=== PATIENT | female | born 1985 | race Caucasian/White ===

== ENCOUNTER → 2018-01-18 14:49 | Outpatient (CLI) | payer OTHER, SELFPAY ==
[2018-01-19 16:10] LABS: Strep Grp B PCR POS for Grp B Strep
== END ==
PROVIDERS: Family Provider Nurse Practitioner; PCP Nurse Practitioner; Visit Provider Obstetrics & Gynecology
DX: Z36.9 Encounter for antenatal screening, unspecified (principal); Z3A.36 36 weeks gestation of pregnancy
CPT/HCPCS: 87653

== ENCOUNTER 2018-02-04 06:18 | Outpatient (CLI) | payer OTHER, SELFPAY ==
--- NOTE | 2018-02-04 07:17 | PM.OBTRLD ---
Visit Information Visit Information Date of evaluation: 02/04/18 Primary OB Provider: Indy Bryan On-call OB Provider: Evita Jalloh Reason for Evaluation: Yes rule out labor Vital Signs Vital Signs: Blood pressure 130/85, pulse 114, temperature 35.9? PFSH Medical History Bipolar disorder (Chronic) Depression (Chronic) Hypothyroidism (Chronic) Surgical History History of third molar tooth extraction (Resolved) Review of Systems Review of Systems Patient denies leakage of fluid. She has been having regular contractions that are increasing. Good movement. No signs or symptoms of preeclampsia. All systems reviewed & are unremarkable except as noted in HPI and below Exam Narrative Exam Narrative: Per nurse's exam patient's cervix is 1 and 0.5 cm dilated 50% effaced posterior -2 to 3. Evaluation Evaluation Baseline heart rate: 125 Variability: Moderate (11-25) monitor accelerations: Present monitor decelerations: Absent Contraction Frequency (minutes): 4 Uterine Contraction Intensity: Moderate Category of Tracing: I Cervical dilation (cm): 1 Cervical effacement (%): 50 station: -2 Diagnosis, Plan/Disposition Final Diagnosis (1) 39 weeks gestation of : Current Visit: No Status: Acute (2) Encounter for supervision of other normal , third trimester: Current Visit: Yes Status: Acute Plan/Disposition Plan: Patient in prodrome labor she will go home and return if she continues to have increasing contractions or rupture of membranes.
== END 2018-02-04 07:25 | disposition home or self-care (01) ==
LOC: OB 13:09
PROVIDERS: Family Provider Nurse Practitioner; PCP Nurse Practitioner; Visit Provider Specialist
DX: Z34.83 Encounter for supervision of other normal pregnancy, third trimester (principal); R10.2 Pelvic and perineal pain; Z3A.38 38 weeks gestation of pregnancy
CPT/HCPCS: 59025; G0378; G0379

== ENCOUNTER 2018-02-04 21:12 | Inpatient (IN) | payer OTHER, SELFPAY ==
[2018-02-04 22:58] LABS: Add Manual Diff / Slide Review NO; Basophils Percent Auto 0.2 % (0-2); Eosinophils Percent Auto 0.9 % (2-4); Hematocrit 31.9 % (36-46); Hemoglobin 10.5 g/dL (12.0-16.0); Mean Corpuscular HGB Conc 32.8 % (30-36); Mean Corpuscular Hemoglobin 26.8 PG (26-34); Mean Corpuscular Volume 81.9 fL (80-100); Monocytes Percent Auto 7.3 % (3-14); Neutrophils Absolute Auto 11000 /uL (3000-5900); Neutrophils Percent Auto 78.6 % (50-75); Platelet Count 193 X10^3/uL (150-400); White Blood Cell Count 13.9 X10^3/uL (4.5-11.0)
[2018-02-04] MEDS: LACTATED RINGERS 1,000 ML 1000 ML IV (22:59)
--- NOTE | 2018-02-05 03:27 | PM.OBPRVD ---
Delivery date: 02/05/18 Induction method: none Delivery monitor: external FHT Route of delivery: Laceration description: Perineal - 1st Degree Estimated blood loss (mL): 250 Anesthesia type: Epidural Complications: None Narrative: Patient was admitted in active labor at 4-5 cm dilated. An epidural was placed. Patient made rapid progress to complete and delivered spontaneously a live born female with scores eight at 1 min and nine at 5 min good condition. Placenta delivered spontaneously in the cord at three vessels. The estimated blood loss was 250 cc. There was a small first-degree tear which required one stitch of two 0 chromic suture.
[2018-02-05 07:40] VITALS: BP 124/71
--- NOTE | 2018-02-05 08:09 | PM.OBPN.1 ---
Subjective - OB Interval history: exam Patient comments: no complaints [place] baby status: doing well [place] feeding status: exclusively breast feeding Narrative: Patient is a 32-year-old two now para two status post spontaneous vaginal delivery without difficulties. Patient is taking p.o. well. She is ambulating well. Patient has urinated. Her IV has been discontinued. And her lochia is scant. Date Patient Seen: 02/05/18 Time Patient Seen: 08:10 Exam Vital Signs (past 8 hours): - 02/05/18 07:40 Blood Pressure 124/71 H Narrative Exam Narrative: Fundus U minus two Perineum is without ecchymosis or swelling Lochia scant Objective Labs Result Diagrams: 02/04/18 22:10 Labs: Laboratory Results - last 24 hr 02/04/18 02/04/18 22:10 22:10 WBC 13.9 H RBC 3.90 L Hgb 10.5 L Hct 31.9 L MCV 81.9 MCH 26.8 MCHC 32.8 RDW 14.0 Plt Count 193 Neut % (Auto) 78.6 H Lymph % (Auto) 13.0 L [place] % (Auto) 7.3 Eos % (Auto) 0.9 L Baso % (Auto) 0.2 Neut # (Auto) 47276 H Blood Type B Negative Antibody Screen Negative Antibody Identification Cancelled Assessment & Plan Plan day: 1 plan OB: routine care Comments: Patient is and doing well Time Spent With Patient Total time spent is greater than 50% in coordination of care (as documented) at patient's floor/unit and/or counseling patient: less than 15 minutes
--- NOTE | 2018-02-05 08:13 | P.PNOB_ITS ---
Subjective - OB Interval history: exam Patient comments: no complaints [place] baby status: doing well [place] feeding status: exclusively breast feeding Narrative: Patient is a 32-year-old two now para two status post spontaneous vaginal delivery without difficulties. Patient is taking p.o. well. She is ambulating well. Patient has urinated. Her IV has been discontinued. And her lochia is scant. Date Patient Seen: 02/05/18 Time Patient Seen: 08:10 Exam Vital Signs (past 8 hours): - 02/05/18 07:40 Blood Pressure 124/71 H Narrative Exam Narrative: Fundus U minus two Perineum is without ecchymosis or swelling Lochia scant Objective Labs Result Diagrams: 02/04/18 22:10 Labs: Laboratory Results - last 24 hr 02/04/18 02/04/18 22:10 22:10 WBC 13.9 H RBC 3.90 L Hgb 10.5 L Hct 31.9 L MCV 81.9 MCH 26.8 MCHC 32.8 RDW 14.0 Plt Count 193 Neut % (Auto) 78.6 H Lymph % (Auto) 13.0 L [place] % (Auto) 7.3 Eos % (Auto) 0.9 L Baso % (Auto) 0.2 Neut # (Auto) 36594 H Blood Type B Negative Antibody Screen Negative Antibody Identification Cancelled Assessment & Plan Plan day: 1 plan OB: routine care Comments: Patient is and doing well Time Spent With Patient Total time spent is greater than 50% in coordination of care (as documented) at patient's floor/unit and/or counseling patient: less than 15 minutes
[2018-02-05] MEDS: DOCUSATE 250 MG CAPSULE PO (08:20)
[2018-02-05] MEDS: DERMOPLAST SPRAY 20% 60 ML 1 SPRAY TOP (08:20)
[2018-02-05 08:45] LABS: Hematocrit 30.1 % (36-46); Hemoglobin 9.9 g/dL (12.0-16.0)
[2018-02-05] MEDS: IBUPROFEN 600 MG TABLET PO ×2 (10:07→17:44)
[2018-02-05] MEDS: LANOLIN OINT 7 GM 1 APPLIC TOP (17:12)
[2018-02-06] MEDS: IBUPROFEN 600 MG TABLET PO ×2 (00:05→08:13)
[2018-02-06 05:58] LABS: Hematocrit 31.9 % (36-46); Hemoglobin 10.4 g/dL (12.0-16.0)
[2018-02-06] MEDS: RHO(D) IMMUNE GLOBULIN 1,500 UNIT SYRINGE 1500 UNIT IM (08:12)
[2018-02-06] MEDS: DOCUSATE 250 MG CAPSULE PO (08:12)
[2018-02-06 09:09] VITALS: BP 138/85; PULSE 90; RESP 15; TEMP 36.7
--- NOTE | 2018-02-06 09:53 | PM.OBDS.1 ---
Discharge Providers Date of admission: 02/04/18 21:12 Primary care physician: CAMILA Acosta Consults: 02/05/18 08:04 Consult to Change Attendant Routine Comment: Discharge provider: Galindo Spring MD Summary Date Patient Seen: 02/06/18 Time Patient Seen: 09:54 Hospital Course: The patient is a 32-year-old white female two now para two who presented in active labor at term. Patient had a rapid labor. Epidural anesthesia was performed. She delivered spontaneously a live born female infant with scores eight at 1 min nine at 5 min in good condition. The estimated blood loss was 250 cc. Patient sustained a small first-degree tear repaired with 120 chromic suture. the patient did well. She remained afebrile with stable vital signs and was progressively element and ambulated. She was discharged home for follow-up in six weeks. instructions were given regards to wound care bathing and exercise. Peripartum Data Infant Delivery Method: Natural Vaginal Laceration description: Perineal - 1st Degree complications: none Status at Discharge Cognitive/behavioral status at discharge: Normal Functional status at discharge: independent ambulation Time Spent with Patient Total time spent providing and/or coordinating discharge services: Less than 30 minutes Specific discharge activities: No heavy lifting Nothing in the vagina Time spent discussing smoking cessation with patient: 3 to 10 minutes (Nothing in the vagina) Objective Labs Result Diagrams: 02/06/18 05:42 Labs: Laboratory Results - last 24 hr 02/06/18 05:42 Hgb 10.4 L Hct 31.9 L Discharge Plan Discharge Plan Patient Disposition: Home, Self-Care Discharge Med Rec/Prescriptions Prescriptions: New benzocaine-menthol [Dermoplast (with menthol)] 20-0.5 % aerosol 1 spray TOP TID Qty: 78 RF: 0 oxycodone-acetaminophen [Percocet] 5-325 mg tablet 2 tab PO Q4-6H PRN (Reason: pain) Qty: 20 RF: 0 docusate sodium [Colace] 100 mg capsule 200 mg PO BEDTIME Qty: 14 RF: 0 ibuprofen 600 mg tablet 600 mg PO QID PRN (Reason: pain) Qty: 20 RF: 0 lanolin 100 % ointment 100 % TOP TID Qty: 397 RF: 0 Continue sertraline [Zoloft] 50 MG tablet 75 mg PO Q DAY Qty: 0 RF: 0 Vitamins (PRENAVITE) 1 tab PO DAILY Qty: 0 RF: 0 Follow up/Referrals: Indy Bryan MD [Physician] - (Follow up with Dr. Bryan at [facility] on March 12 @ 3:15PM. ) Provider Discharge Instructions Diet: Diet as Tolerated and Regular Wound Care Other wound treatment: Keep wound clean and dry Visit Report/Discharge Packet Visit Report Forms: Stroke Signs & Symptoms Discharge Data Primary Care Provider: Hayley Sharpe Attending Provider: Galindo Spring Admit Date/Time: 02/04/18 21:12 Discharge Interventions Interventions: Discharge assessment Last Done: 02/06/18 09:09
--- NOTE | 2018-02-06 09:57 | P.DS_ITS ---
Discharge Providers Date of admission: 02/04/18 21:12 Primary care physician: ACMILA Acosta Consults: 02/05/18 08:04 Consult to Clinic Clerk Routine Comment: Discharge provider: Galindo Spring MD Summary Date Patient Seen: 02/06/18 Time Patient Seen: 09:54 Hospital Course: The patient is a 32-year-old white female two now para two who presented in active labor at term. Patient had a rapid labor. Epidural anesthesia was performed. She delivered spontaneously a live born female infant with scores eight at 1 min nine at 5 min in good condition. The estimated blood loss was 250 cc. Patient sustained a small first-degree tear repaired with 120 chromic suture. the patient did well. She remained afebrile with stable vital signs and was progressively element and ambulated. She was discharged home for follow -up in six weeks. instructions were given regards to wound care bathing and exercise. Peripartum Data Infant Delivery Method: Natural Vaginal Laceration description: Perineal - 1st Degree complications: none Status at Discharge Cognitive/behavioral status at discharge: Normal Functional status at discharge: independent ambulation Time Spent with Patient Total time spent providing and/or coordinating discharge services: Less than 30 minutes Specific discharge activities: No heavy lifting Nothing in the vagina Time spent discussing smoking cessation with patient: 3 to 10 minutes (Nothing in the vagina) Objective Labs Result Diagrams: 02/06/18 05:42 Labs: Laboratory Results - last 24 hr 02/06/18 05:42 Hgb 10.4 L Hct 31.9 L Discharge Plan Discharge Plan Patient Disposition: Home, Self-Care Discharge Med Rec/Prescriptions Prescriptions: New benzocaine-menthol [Dermoplast (with menthol)] 20-0.5 % aerosol 1 spray TOP TID Qty: 78 RF: 0 oxycodone-acetaminophen [Percocet] 5-325 mg tablet 2 tab PO Q4-6H PRN (Reason: pain) Qty: 20 RF: 0 docusate sodium [Colace] 100 mg capsule 200 mg PO BEDTIME Qty: 14 RF: 0 ibuprofen 600 mg tablet 600 mg PO QID PRN (Reason: pain) Qty: 20 RF: 0 lanolin 100 % ointment 100 % TOP TID Qty: 397 RF: 0 Continue sertraline [Zoloft] 50 MG tablet 75 mg PO Q DAY Qty: 0 RF: 0 Vitamins (PRENAVITE) 1 tab PO DAILY Qty: 0 RF: 0 Follow up/Referrals: Indy Bryan MD [Physician] - (Follow up with Dr. Bryan at [facility] on March 12 @ 3:15PM. ) Provider Discharge Instructions Diet: Diet as Tolerated and Regular Wound Care Other wound treatment: Keep wound clean and dry Visit Report/Discharge Packet Visit Report Forms: Stroke Signs & Symptoms Discharge Data Primary Care Provider: Hayley Sharpe Attending Provider: Galindo Spring Admit Date/Time: 02/04/18 21:12 Discharge Interventions Interventions: Discharge assessment Last Done: 02/06/18 09:09
== END 2018-02-06 10:20 | disposition home or self-care (01) | DRG 775 ==
PROVIDERS: Family Provider Nurse Practitioner; PCP Nurse Practitioner
DX: O99.824 Streptococcus B carrier state complicating childbirth (principal); Z3A.38 38 weeks gestation of pregnancy; Z37.0 Single live birth; O70.0 First degree perineal laceration during delivery
CPT/HCPCS: 01967; 36415; 59050; 59400; 59409; 85014; 85018; 85025; 86850; 86870; 86900; 86901; G0379; J2790; J3010

== ENCOUNTER 2024-06-01 16:50 | Emergency (ER) | payer OTHER, SELFPAY ==
[2024-06-01] VITALS (23 sets, daily range): BP systolic 115–154; BP diastolic 56–91; PULSE 71–105; RESP 9–61; O2SAT 95–100; BMI 22.6
[2024-06-01] MEDS: EPINEPHrine 1 MG/ML 0.3 MG IM (17:15)
--- NOTE | 2024-06-01 17:16 | ED_ITS ---
HPI - Allergic Reaction General Chief complaint: Allergic Reaction Stated complaint: allergy (shrimp) Time Seen by Provider: 06/01/24 17:13 Source: patient Mode of arrival: Ambulatory History of Present Illness HPI narrative: Patient here for allergic reaction. Patient brought in by family. Just prior to arrival she accidentally ate some shrimp that she is allergic to. She was at home. It was mislabeled on the packaging. 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 She did not take her EpiPen. On arrival patient states she has throat tightening. Appears anxious. Solu-Medrol Benadryl Pepcid EpiPen ordered. Patient on monitor. Speaking full sentences. No rash or itching. No tongue swelling or lip swelling. Posterior pharynx has no edema or erythema. No stridor on auscultation neck and lungs Related Data Home Medications Medication Instructions Recorded Confirmed Vitamins (PRENAVITE) 1 tab PO DAILY ##0 05/15/16 02/05/18 sertraline 50 mg tablet (Zoloft) 75 mg PO Q DAY ##0 05/15/16 02/05/18 Previous Rx's Medication Instructions Recorded benzocaine 20 %-menthol 0.5 % 1 spray topical TID #78 grams 02/06/18 topical aerosol (Dermoplast (with menthol)) docusate sodium 100 mg capsule 200 mg (2 x 100 mg) PO BEDTIME #14 02/06/18 (Colace) caps ibuprofen 600 mg tablet 600 mg PO QID PRN pain #20 tabs 02/06/18 lanolin 100 % topical ointment 100 % topical TID #397 grams 02/06/18 oxycodone-acetaminophen 5 mg-325 2 tab PO Q4-6H PRN pain #20 tabs 02/06/18 mg tablet (Percocet) famotidine 20 mg tablet 20 mg PO BID #14 tabs 06/01/24 methylprednisolone 4 mg tablets in See Rx Instructions PO .COMPLEX 06/01/24 a dose pack (Medrol (Tomer)) #21 ea Allergies Allergy/AdvReac Type Severity Reaction Status Date / Time shellfish derived Allergy Severe anaphylaxis Verified 02/05/18 07:30 [SHELLFISH DERIVED] hydrocodone [From VICODIN] Allergy Intermediate hives Verified 02/05/18 07:30 Review of Systems Review of Systems Narrative: GENERAL: Negative chills, fatigue, malaise, fever, sweats. HEENT: Negative sinus pain, ear pain, sore throat RESPIRATORY: Positive dyspnea, negative cough CARDIOVASCULAR: Negative chest pain, palpitations GASTROINTESTINAL: Negative nausea, vomiting, abdominal pain : Negative dysuria, frequency, hematuria MUSCULOSKELETAL: Negative muscle or bony pain SKIN: Negative rash, skin lesions NEUROLOGIC: Negative weakness, numbness ROS Unobtainable: All systems reviewed & are unremarkable except as noted in HPI and below Patient History Medical History Bipolar disorder Hypothyroidism Depression Surgical History History of third molar tooth extraction Social History Smoking Status: Never smoker Smoking Status: Never smoker Substance Use Type: does not use Exam Narrative Exam Narrative: GENERAL: in no distress, not toxic not dyspneic HEAD: Normocephalic. EYES: Pupils equal round ENT: Mucous membranes moist. Posterior pharynx mouth lips no edema no tongue elevation no drooling no trismus no malocclusion NECK: Trachea midline. No stridor CARDIOVASCULAR: Regular rate and rhythm RESPIRATORY: Clear to auscultation. Breath sounds equal bilaterally. No wheezes, rales, or rhonchi. No stridor GASTROINTESTINAL: Abdomen soft, non-tender EXTREMITIES: No gross deformities. BACK: No flank tenderness. NEURO: AOx4. Clear speech SKIN: Warm and dry PSYCH: Not anxious, is cooperative Initial Vital Signs Initial Vital Signs: Vital Signs Pulse Rate 80 06/01/24 17:04 Pulse Oximetry 100 06/01/24 17:04 Course Orders Ordered: Discontinued Medications Diphenhydramine HCl (Diphenhydramine 50 Mg/Ml Vial) 50 mg IV NOW ONE Stop: 06/01/24 17:15 Last Admin: 06/01/24 17:22 Dose: 50 mg Documented By: LENNIE Epinephrine HCl (Epinephrine 1 Mg/Ml) 0.3 mg IM NOW ONE Stop: 06/01/24 17:16 Last Admin: 06/01/24 17:15 Dose: 0.3 mg Documented By: LENNIE Famotidine (Famotidine 20 Mg/2 Ml Vial) 20 mg IV NOW JACK Famotidine (Famotidine 20 Mg/2 Ml Vial) 20 mg IV NOW JACK Famotidine (Famotidine 20 Mg/2 Ml Vial) 20 mg IV NOW ONE Stop: 06/01/24 17:43 Last Admin: 06/01/24 17:23 Dose: 20 mg Documented By: LENNIE Methylprednisolone (Methylprednisolone 125 Mg/2 Ml Vial) 125 mg IV NOW ONE Stop: 06/01/24 17:15 Last Admin: 06/01/24 17:21 Dose: 125 mg Documented By: LENNIE MDM - Allergic Reaction [facility] Narrative Medical decision making narrative: Patient here for allergic reaction. Patient brought in by family. Just prior to arrival she accidentally ate some shrimp that she is allergic to. She was at home. It was mislabeled on the packaging. 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 She did not take her EpiPen. On arrival patient states she has throat tightening. Appears anxious. Solu-Medrol Benadryl Pepcid EpiPen ordered. Patient on monitor. Speaking full sentences. No rash or itching. No tongue swelling or lip swelling. Posterior pharynx has no edema or erythema. No stridor on auscultation neck and lungs After history and exam no labs indicated. Patient needs Solu-Medrol Benadryl Pepcid EpiPen [facility] Medical records reviewed: No recent visit for this complaint Differential considered: Includes but not limited to anaphylaxis food allergy Lab Test results independently reviewed as above. Pertinent findings: None indicated Independently reviewed EKG none indicated Imaging studies independently reviewed: None indicated Consultations: None indicated at this time Treatments: EpiPen Benadryl Pepcid Solu-Medrol Re-evaluations: 5:34 p.m.. No respiratory distress. No airway compromise. Patient is speaking full sentences. 98% room air. Not tachypneic. 6:30 p.m.. Patient doing very well. At baseline now. No allergic complaints. Not requiring supplemental oxygen. Airway intact. Patient and desire discharge home. Will observe until 7:00 p.m. Discussion: Appropriate for discharge home return precautions reviewed patient. Not toxic at discharge. Airway intact. Patient awake alert with no respiratory distress. Patient observed for 2 hours Diagnosis: Allergic reaction Discharge Plan Departure Patient Disposition: Home Clinical Impression: Allergic reaction Qualifiers: Encounter type: initial encounter Qualified Code(s): T78.40XA - Allergy, unspecified, initial encounter Instructions: DI for Anaphylaxis, DI for Food Allergy Activity Restrictions/Additional Instructions: Please carry your EpiPen with you at all times. Prescriptions have been provided for you and sent to your pharmacy. Please continue steroid pack tomorrow. See family doctor this week for re-evaluation. Return if worse if any questions or concerns. Prescriptions: New famotidine 20 mg tablet 20 mg PO BID Qty: 14 0RF methylprednisolone [Medrol (Tomer)] 4 mg tablets,dose pack See Rx Instructions .ROUTE .COMPLEX Qty: 21 0RF Rx Instructions: orally per package directions No Action sertraline [Zoloft] 50 MG tablet 75 mg PO Q DAY Qty: 0 Vitamins (PRENAVITE) 1 tab PO DAILY Qty: 0 benzocaine-menthol [Dermoplast (with menthol)] 20-0.5 % aerosol 1 spray TOP TID Qty: 78 0RF oxycodone-acetaminophen [Percocet] 5-325 mg tablet 2 tab PO Q4-6H PRN (Reason: pain) Qty: 20 0RF docusate sodium [Colace] 100 mg capsule 200 mg PO BEDTIME Qty: 14 0RF ibuprofen 600 mg tablet 600 mg PO QID PRN (Reason: pain) Qty: 20 0RF lanolin 100 % ointment 100 % TOP TID Qty: 397 0RF Referrals: Hayley Sharpe ARNP [Primary Care Provider] - Stand Alone Forms: Patient Portal/API/Survey
[2024-06-01] MEDS: methylPREDNISolone 125 MG/2 ML VIAL IV (17:21)
[2024-06-01] MEDS: diphenhydrAMINE 50 MG/ML VIAL IV (17:22)
[2024-06-01] MEDS: FAMOTIDINE 20 MG/2 ML VIAL IV (17:23)
== END 2024-06-01 19:06 | disposition home or self-care (01) ==
PROVIDERS: Emergency Provider Emergency Medicine; Family Provider Nurse Practitioner; PCP Nurse Practitioner
DX: T78.02XA Anaphylactic reaction due to shellfish (crustaceans), initial encounter (principal)
CPT/HCPCS: 36415; 96372; 96374; 96375; 99284; J0171; J1200; J2919

== ENCOUNTER 2024-11-14 19:38 | Emergency (ER) | payer OTHER, SELFPAY ==
[2024-11-14] VITALS (7 sets, daily range): BP systolic 112–143; BP diastolic 57–83; PULSE 80–98; RESP 14–22; TEMP 36.8–36.9; O2SAT 95–100
--- NOTE | 2024-11-14 19:52 | ED.GENADULT ---
HPI - General Adult General Chief complaint: Allergic Reaction Stated complaint: allergic reaction Time Seen by Provider: 11/14/24 19:50 History of Present Illness HPI narrative: 39-year-old female with history of allergic reactions to shellfish, at home ate scallops 40 minutes prior to arrival, felt throat tightening sensation, felt more short of breath, no tongue or lip swelling, no hives or itching, she took her own injection dose of epinephrine and oral dose of Benadryl 50 mg, still feeling some shortness of breath. Related Data Home Medications Medication Instructions Recorded Confirmed Vitamins (PRENAVITE) 1 tab PO DAILY ##0 05/15/16 02/05/18 sertraline 50 mg tablet (Zoloft) 75 mg PO Q DAY ##0 05/15/16 02/05/18 Previous Rx's Medication Instructions Recorded benzocaine 20 %-menthol 0.5 % 1 spray topical TID #78 grams 02/06/18 topical aerosol (Dermoplast (with menthol)) docusate sodium 100 mg capsule 200 mg (2 x 100 mg) PO BEDTIME #14 02/06/18 (Colace) caps ibuprofen 600 mg tablet 600 mg PO QID PRN pain #20 tabs 02/06/18 lanolin 100 % topical ointment 100 % topical TID #397 grams 02/06/18 oxycodone-acetaminophen 5 mg-325 2 tab PO Q4-6H PRN pain #20 tabs 02/06/18 mg tablet (Percocet) famotidine 20 mg tablet 20 mg PO BID #14 tabs 06/01/24 methylprednisolone 4 mg tablets in See Rx Instructions PO .COMPLEX 06/01/24 a dose pack (Medrol (Tomer)) #21 ea epinephrine 0.3 mg/0.3 mL 0.3 mg (0.3 mL) IM Q5-15M PRN 11/14/24 injection, auto-injector anaphylaxis #2 ea prednisone 20 mg tablet 40 mg (2 x 20 mg) PO DAILY 5 days 11/14/24 #10 tabs Allergies Allergy/AdvReac Type Severity Reaction Status Date / Time shellfish derived Allergy Severe anaphylaxis Verified 02/05/18 07:30 [SHELLFISH DERIVED] hydrocodone [From VICODIN] Allergy Intermediate hives Verified 02/05/18 07:30 Patient History Medical History Bipolar disorder Hypothyroidism Depression Surgical History History of third molar tooth extraction Social History Smoking Status: Never smoker Exam Narrative Exam Narrative: GENERAL: Well-developed patient, in mild respiratory distress. Speaking in full sentences. HEAD: Atraumatic. Normocephalic. EYES: Pupils equal round and reactive. Extraocular motions intact. No scleral icterus. No injection or drainage. No edema to lips or tongue. No facial or neck urticaria. ENT: Nose without bleeding, purulent drainage. Throat without erythema, tonsillar hypertrophy or exudate. Airway patent. NECK: Trachea midline. Non tender CARDIOVASCULAR: Regular rate and rhythm without murmurs, gallops, or rubs. RESPIRATORY: Clear to auscultation. Breath sounds equal bilaterally. No wheezes, rales, or rhonchi. GASTROINTESTINAL: Abdomen soft, non-tender, nondistended. EXTREMITIES: No edema or joint tenderness. BACK: Nontender without deformity or crepitance. No flank tenderness. NEURO: AOx3. Motor functions grossly nonfocal SKIN: No rash or erythema of visible areas Initial Vital Signs Initial Vital Signs: Vital Signs Pulse Rate 98 H 11/14/24 19:50 Blood Pressure 143/83 H 11/14/24 19:50 Pulse Oximetry 95 11/14/24 19:50 Course Orders Ordered: Discontinued Medications Albuterol (Albuterol 2.5 Mg/3 Ml Neb (Adult)) 2.5 mg INH NOW ONE Stop: 11/14/24 19:56 Last Admin: 11/14/24 20:18 Dose: 2.5 mg Documented By: ESTEFANÍA Diphenhydramine HCl (Diphenhydramine 50 Mg/Ml Vial) 25 mg IV NOW ONE Stop: 11/14/24 19:51 Last Admin: 11/14/24 20:11 Dose: 25 mg Documented By: SAVANNAH Famotidine (Famotidine 20 Mg/2 Ml Vial) 20 mg IV NOW JACK Last Admin: 11/14/24 20:11 Dose: 20 mg Documented By: SAVANNAH Methylprednisolone (Methylprednisolone 125 Mg/2 Ml Vial) 125 mg IV NOW ONE Stop: 11/14/24 19:51 Last Admin: 11/14/24 20:05 Dose: 125 mg Documented By: SAVANNAH Medical Decision Making MDM Narrative Medical decision making narrative: History shellfish allergies, ate scallops, dyspnea, took own EpiPen and oral Benadryl dose, still short of breath. IV solumedrol, benadryl. Symptoms better. Refills of her EpiPen, sent Rx for Prednisone pulse next 5 days. Wanted to go home. Home with family. Lives nearby, return precautions discussed. Advised to avoid all forms of shellfish, not just clams and oysters. Discharge Plan Departure Patient Disposition: Home Clinical Impression: Allergic reaction due to mollusk Instructions: DI for Anaphylaxis Activity Restrictions/Additional Instructions: History of shellfish allergies, apparently not suspected to be allergic to scallops, had scallops earlier this evening with typical allergic reactions, use your own EpiPen injector and took oral Benadryl. Additional IV Benadryl was given here, along with IV steroids Solu-Medrol. Symptoms improved. We discussed further observation period of time you felt that you could go home, live nearby. We will send refill of EpiPen injectors although you have a supply at this time. Take Benadryl regularly for the next few days. Prescription sent for prednisone steroid to take for the next few days as well. Avoid all shellfish and apparently now also try to avoid scallops. Consider recheck with your regular doctor if not improved in the next couple of days. Return to this/nearest emergency department if any change worsening symptoms or any concerns prior Prescriptions: New prednisone 20 mg tablet 40 mg PO DAILY 5 Days Qty: 10 0RF epinephrine 0.3 mg/0.3 mL auto-injector 0.3 mg IM Q5-15M PRN (Reason: anaphylaxis) Qty: 2 1RF Rx Instructions: do not exceed 3 doses per episode No Action sertraline [Zoloft] 50 MG tablet 75 mg PO Q DAY Qty: 0 Vitamins (PRENAVITE) 1 tab PO DAILY Qty: 0 famotidine 20 mg tablet 20 mg PO BID Qty: 14 0RF methylprednisolone [Medrol (Tomer)] 4 mg tablets,dose pack See Rx Instructions .ROUTE .COMPLEX Qty: 21 0RF Rx Instructions: orally per package directions benzocaine-menthol [Dermoplast (with menthol)] 20-0.5 % aerosol 1 spray TOP TID Qty: 78 0RF oxycodone-acetaminophen [Percocet] 5-325 mg tablet 2 tab PO Q4-6H PRN (Reason: pain) Qty: 20 0RF docusate sodium [Colace] 100 mg capsule 200 mg PO BEDTIME Qty: 14 0RF ibuprofen 600 mg tablet 600 mg PO QID PRN (Reason: pain) Qty: 20 0RF lanolin 100 % ointment 100 % TOP TID Qty: 397 0RF Referrals: Hayley Sharpe ARNP [Primary Care Provider] - Stand Alone Forms: Patient Portal/API/Survey
[2024-11-14] MEDS: methylPREDNISolone 125 MG/2 ML VIAL IV (20:05)
[2024-11-14] MEDS: FAMOTIDINE 20 MG/2 ML VIAL IV (20:11)
[2024-11-14] MEDS: diphenhydrAMINE 50 MG/ML VIAL 25 MG IV (20:11)
[2024-11-14] MEDS: ALBUTEROL 2.5 MG/3 ML NEB (ADULT) INH (20:18)
== END 2024-11-14 21:25 | disposition home or self-care (01) ==
PROVIDERS: Emergency Provider Emergency Medicine; Family Provider Nurse Practitioner; PCP Nurse Practitioner
DX: T78.02XA Anaphylactic reaction due to shellfish (crustaceans), initial encounter (principal); R06.00 Dyspnea, unspecified
CPT/HCPCS: 94640; 96374; 96375; 99284; J1200; J2919; J7613

== ENCOUNTER 2025-01-28 10:42 | Emergency (ER) | payer OTHER, SELFPAY ==
[2025-01-28] VITALS (16 sets, daily range): BP systolic 120–176; BP diastolic 57–91; PULSE 93–114; RESP 15–21; O2SAT 96–100; BMI 22.6
[2025-01-28] MEDS: diphenhydrAMINE 50 MG/ML VIAL IV (11:00)
[2025-01-28] MEDS: EPINEPHrine 1 MG/ML IM (11:00)
[2025-01-28] MEDS: FAMOTIDINE 20 MG/2 ML VIAL IV (11:00)
--- NOTE | 2025-01-28 14:17 | ED.ALLEREA ---
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 She used 1 EpiPen prior to arrival. She has not had any chest pain, loss of consciousness but just feels her throat and tongue are swollen and tingling. She has never had to be intubated from anaphylactic reaction previously. Related Data Home Medications ?Medication ?Instructions ?Recorded ?Confirmed Vitamins (PRENAVITE) 1 tab PO DAILY ##0 05/15/16 02/05/18 sertraline 50 mg tablet (Zoloft) 75 mg PO Q DAY ##0 05/15/16 02/05/18 Previous Rx's ?Medication ?Instructions ?Recorded benzocaine 20 %-menthol 0.5 % 1 spray topical TID #78 grams 02/06/18 topical aerosol (Dermoplast (with menthol)) docusate sodium 100 mg capsule 200 mg (2 x 100 mg) PO BEDTIME #14 02/06/18 (Colace) caps ibuprofen 600 mg tablet 600 mg PO QID PRN pain #20 tabs 02/06/18 lanolin 100 % topical ointment 100 % topical TID #397 grams 02/06/18 oxycodone-acetaminophen 5 mg-325 2 tab PO Q4-6H PRN pain #20 tabs 02/06/18 mg tablet (Percocet) famotidine 20 mg tablet 20 mg PO BID #14 tabs 06/01/24 methylprednisolone 4 mg tablets in See Rx Instructions PO .COMPLEX 06/01/24 a dose pack (Medrol (Tomer)) #21 ea epinephrine 0.3 mg/0.3 mL 0.3 mg (0.3 mL) IM Q5-15M PRN 11/14/24 injection, auto-injector anaphylaxis #2 ea Allergies Allergy/AdvReac Type Severity Reaction Status Date / Time cephalexin (From Keflex) Allergy Severe Anaphylaxis Verified 01/28/25 10:54 shellfish derived (SHELLFISH Allergy Severe anaphylaxis Verified 01/28/25 10:54 DERIVED) hydrocodone (From VICODIN) Allergy Intermediate hives Verified 01/28/25 10:54 Patient History Medical History Bipolar disorder Hypothyroidism Depression Surgical History History of third molar tooth extraction Social History Smoking Status: Former smoker Smoking Status: Former smoker Exam Initial Vital Signs Initial Vital Signs: Vital Signs Pulse Rate 94 H 01/28/25 10:49 Respiratory Rate 16 01/28/25 10:49 Blood Pressure 176/91 H 01/28/25 10:49 Pulse Oximetry 100 01/28/25 10:49 Oxygen Delivery Method Room Air 01/28/25 10:49 Const General: No comfortable, acute distress, in distress and No diaphoretic HENMT Head: normocephalic and atraumatic Mouth: oral mucosae normal, lip normal, tongue normal, oropharynx normal, moist mucous membranes, No mucous membranes abnormal, No audible dysphonia, No drooling, No oral mucosa abnormal, No tongue abnormal and No trismus Eyes General: Yes appearance normal, both eyes and all related structures Neck Neck: supple and No tender Resp Effort & Inspection: normal respiratory effort, no cough and not labored Auscultation: clear to auscultation bilaterally Cardio Rate: regular rate Rhythm: regular rhythm Heart Sounds: S1 normal and S2 normal GI Palpation: soft and No tender Course Course Course Narrative: Patient seen and examined immediately upon arrival in the ER. She was immediately treated with additional epinephrine, Benadryl, famotidine, and Solu-Medrol. After this dose in the ER she did not require any additional epinephrine. She was observed for about 3 more hours in the ER and remained stable with complete resolution of her symptoms. At this point, she felt comfortable with discharge home as well. She was given 1 more dose of Benadryl prior to discharge and I also advised her to continue taking Benadryl 25-50 mg every 4 hours for at least the next 24 hours. I also advised her to follow up in the ER call 911 immediately if she experiences any further symptoms. Patient was in agreement with this plan. Orders Ordered: Discontinued Medications Diphenhydramine HCl (Diphenhydramine 50 Mg/Ml Vial) 50 mg IV NOW ONE Stop: 01/28/25 11:13 Last Admin: 01/28/25 11:00 Dose: 50 mg Documented By: Epinephrine HCl (Epinephrine 1 Mg/Ml) 1 mg IM NOW ONE Stop: 01/28/25 11:13 Last Admin: 01/28/25 11:00 Dose: 1 mg Documented By: Famotidine (Famotidine 20 Mg/2 Ml Vial) 20 mg IV NOW JACK Famotidine (Famotidine 20 Mg/2 Ml Vial) 20 mg IV NOW STA Stop: 01/28/25 11:17 Last Admin: 01/28/25 11:00 Dose: 20 mg Documented By: Methylprednisolone (Methylprednisolone 125 Mg/2 Ml Vial) 125 mg IV NOW ONE Stop: 01/28/25 11:13 Last Admin: 01/28/25 11:00 Dose: 125 mg Documented By: Vital Signs Vital signs: Vital Signs - 8 hr 01/28/25 10:49 01/28/25 11:07 01/28/25 11:07 Pulse Rate 94 H 114 H Respiratory Rate 16 16 Blood Pressure 176/91 H 146/85 H Pulse Oximetry 100 100 Oxygen Delivery Method Room Air 01/28/25 11:13 01/28/25 11:13 01/28/25 11:20 Pulse Rate 95 H 98 H Respiratory Rate 15 16 Blood Pressure 140/61 Pulse Oximetry 100 98 Oxygen Delivery Method 01/28/25 11:20 01/28/25 11:30 01/28/25 11:30 Pulse Rate 100 H Respiratory Rate 17 Blood Pressure 141/69 H 140/63 Pulse Oximetry 99 Oxygen Delivery Method 01/28/25 11:46 01/28/25 11:46 01/28/25 12:00 Pulse Rate 100 H 100 H Respiratory Rate 19 19 Blood Pressure 136/60 Pulse Oximetry 98 97 Oxygen Delivery Method 01/28/25 12:00 01/28/25 12:15 01/28/25 12:15 Pulse Rate 95 H Respiratory Rate 20 Blood Pressure 139/63 126/58 L Pulse Oximetry 98 Oxygen Delivery Method 01/28/25 12:30 01/28/25 12:30 01/28/25 12:45 Pulse Rate 102 H 101 H Respiratory Rate 20 19 Blood Pressure 122/58 L Pulse Oximetry 97 97 Oxygen Delivery Method 01/28/25 12:45 01/28/25 13:00 01/28/25 13:00 Pulse Rate 98 H Respiratory Rate 20 Blood Pressure 125/57 L 123/58 L Pulse Oximetry 97 Oxygen Delivery Method 01/28/25 13:15 01/28/25 13:15 01/28/25 13:30 Pulse Rate 95 H Respiratory Rate 17 Blood Pressure 120/58 L 122/58 L Pulse Oximetry 96 Oxygen Delivery Method 01/28/25 13:30 01/28/25 13:45 01/28/25 13:45 Pulse Rate 93 H 93 H Respiratory Rate 18 17 Blood Pressure 125/58 L Pulse Oximetry 97 97 Oxygen Delivery Method 01/28/25 14:00 01/28/25 14:00 01/28/25 14:12 Pulse Rate 93 H 93 H Respiratory Rate 21 19 Blood Pressure 130/60 Pulse Oximetry 97 98 Oxygen Delivery Method 01/28/25 14:12 Pulse Rate Respiratory Rate Blood Pressure 131/59 L Pulse Oximetry Oxygen Delivery Method MDM - Allergic Reaction Differential Diagnosis Differential diagnosis: Likely anaphylaxis, allergic reaction, angioedema and adverse reaction to drug Discharge Plan Departure Patient Disposition: Home Clinical Impression: Anaphylaxis Instructions: DI for Anaphylaxis Activity Restrictions/Additional Instructions: continue taking Benadryl 25-50 mg every 4 hours for at least the next 24 hours. I also advised her to follow up in the ER call 911 immediately if she experiences any further symptoms. Prescriptions: No Action sertraline [Zoloft] 50 MG tablet 75 mg PO Q DAY Qty: 0 Vitamins (PRENAVITE) 1 tab PO DAILY Qty: 0 famotidine 20 mg tablet 20 mg PO BID Qty: 14 0RF methylprednisolone [Medrol (Tomer)] 4 mg tablets,dose pack See Rx Instructions .ROUTE .COMPLEX Qty: 21 0RF Rx Instructions: orally per package directions benzocaine-menthol [Dermoplast (with menthol)] 20-0.5 % aerosol 1 spray TOP TID Qty: 78 0RF oxycodone-acetaminophen [Percocet] 5-325 mg tablet 2 tab PO Q4-6H PRN (Reason: pain) Qty: 20 0RF docusate sodium [Colace] 100 mg capsule 200 mg PO BEDTIME Qty: 14 0RF ibuprofen 600 mg tablet 600 mg PO QID PRN (Reason: pain) Qty: 20 0RF lanolin 100 % ointment 100 % TOP TID Qty: 397 0RF epinephrine 0.3 mg/0.3 mL auto-injector 0.3 mg IM Q5-15M PRN (Reason: anaphylaxis) Qty: 2 1RF Rx Instructions: do not exceed 3 doses per episode Referrals: Hayley Sharpe PUBLIC ADDRESS TECHNICIAN [Primary Care Provider, Medical] Stand Alone Forms: Patient Portal/API
== END 2025-01-28 14:34 | disposition home or self-care (01) ==
PROVIDERS: Emergency Provider Emergency Medicine; Family Provider Nurse Practitioner; PCP Nurse Practitioner
DX: T78.02XA Anaphylactic reaction due to shellfish (crustaceans), initial encounter (principal)
CPT/HCPCS: 96372; 96374; 96375; 99284; J0165; J1200; J2919